=== PATIENT | female | born 1970 | race Caucasian/White ===

== ENCOUNTER 2016-08-14 07:46 | Day surgery (SDC) | payer OTHER ==
[2016-08-09 14:59] LABS: BASOPHILS 0.3 %; BASOPHILS ABSOLUTE 0.02 10/3/uL (0.0-0.16); EOSINOPHILS 2.4 %; EOSINOPHILS ABSOLUTE 0.15 10/3/uL (0.0-0.53); HEMATOCRIT 37.7 % (36.0-48.0); IMMATURE GRANULOCYTES 0.2 %; IMMATURE GRANULOCYTES ABSOLUTE 0.01 10/3/uL (0.0-0.11); LYMPHOCYTES 36.2 %; LYMPHOCYTES ABSOLUTE 2.23 10/3/uL (0.67-4.30); MEAN CORPUS HGB CONC 34.5 g/dL (32.0-36.0); MEAN CORPUSCULAR HEMOGLOB 33.2 pg (26.0-34.0); MEAN CORPUSCULAR VOLUME 96.2 fL (80-100); MEAN PLATELET VOLUME 9.3 fL (9.2-13.0); MONOCYTES 8.1 %; NEUTROPHILS 52.8 %; NEUTROPHILS ABSOLUTE 3.25 10/3/uL (2.02-8.40); RBC DISTRIBUTION WIDTH 12.7 % (12.0-16.0)
[2016-08-09 15:00] LABS: MANUAL DIFF NO %; PLATELET COUNT 309 10/3/uL (150-400); RED CELL COUNT 3.92 10/6/uL (4.0-5.6); WHITE BLOOD CELLS 6.2 10/3/uL (4.5-10.5)
[2016-08-09 15:13] LABS: BUN (BLOOD UREA NITROGEN) 9 MG/DL (6-23); CALCIUM, SERUM 9.3 MG/DL (8.5-10.4); CHLORIDE, SERUM 104 MMOL/L (96-112); CO2 (CARBON DIOXIDE) 32 MMOL/L (24-34); CREATININE 0.68 MG/DL (0.55-1.02); GFR AFRICAN AMERICAN 121 ML/MIN (>=60); GFR NON AFRICAN AMERICAN 104 ML/MIN (>=60); GLUCOSE, SERUM 89 MG/DL (60-99); SODIUM, SERUM 143 MMOL/L (135-148)
[2016-08-09 15:14] LABS: POTASSIUM, SERUM 3.8 MMOL/L (3.5-5.3)
--- NOTE | ~2016-08-14 | OP ---
Record Of Operation [facility] [address] [place]. [address] NAME: CAESAR CUBA : 68 STATUS : [facility]#: [id number] AGE: 46 ADM/REG DATE : 08/14/16 MR#: [id number] REPORT SERV DATE: 08/14/16 DICTATED BY: BARBARA GUERRA DATE: 08/14/16 REPORT STATUS : Draft TRANSCRIBED BY: MODL DATE: 08/14/16 DATE OF PROCEDURE: 08/14/2016 SERVICE: Otolaryngology. PREOPERATIVE DIAGNOSIS: Acquired nasal deformity. POSTOPERATIVE DIAGNOSIS: Acquired nasal deformity. PROCEDURE: 1. Repair of nasal vestibular stenosis. 2. Septoplasty. 3. [place] of septal cartilage for use as a graft in the nose. 4. Bilateral inferior turbinate submucosal reduction and outfracture. SURGEON: Barbara Guerra MD. ANESTHESIA: General endotracheal anesthesia. ESTIMATED BLOOD LOSS: 20 mL. COMPLICATIONS: None. SPECIMENS: Nasal bone and cartilage. FINDINGS: The patient has severe left-sided nasal spur and a bilateral internal valve insufficiency along with the turbinate hypertrophy. STATEMENT OF MEDICAL NECESSITY: A 46-year-old with chronic nasal airway obstruction, had history of multiple nasal traumas in the past. Did not have a significant history of allergy or other inflammatory nasal process. Her physical exam revealed the above mechanical obstructions and I recommended the above surgery for repair. STATEMENT OF OPERATION: The patient was brought to the operating room in supine position, transferred over to the operating room table. All pressure points were padded and general endotracheal anesthesia was established. The patient's nasal hairs were trimmed with straight iris scissors. A 4% cocaine-soaked pledgets were applied to the nose bilaterally. The skin and soft tissue envelope of the nose was infiltrated with 1% lidocaine with epinephrine as were the septal flaps bilaterally. The patient was prepped and draped in usual fashion. The cocaine pledgets were removed. A transcolumellar incision was marked using a surgical marking pen in inverted V fashion. Bilateral marginal incisions were made followed by a transcolumellar incision. The columellar skin was elevated in the submuscular plane and connected with the marginal incision. The skin and soft tissue envelope was elevated to fully expose the upper and lower lateral cartilages. Next, the anterior septal angle was developed with a 15 blade. Bilateral septal flaps were created in the subperichondrial and subperiosteal plane. The upper lateral cartilages were divided sharply Record Of Operation [place] [id number] [facility] [address] [place]. [address] NAME: CAESAR CUBA : 68 STATUS : [facility] PAT#: [id number] AGE: 46 ADM/REG DATE : 08/14/16 MR#: [id number] REPORT SERV DATE: 08/14/16 DICTATED BY: BARBARA GUERRA DATE: 08/14/16 REPORT STATUS : Draft TRANSCRIBED BY: SHERRY DATE: 08/14/16 from the dorsal septal cartilage with a 15 blade. The bony cartilaginous junction of the septum was then divided with a Hoke elevator. A Chiang scissor was used to make a superior cut just above the level of the deviated bony nasal septum and large septal spur. A Hoke elevator was used to dig the septal spur out of the maxillary crest over the spine of the maxilla. It was removed with a Reina forceps. Next, maintaining 1.5 cm caudal and dorsal strut, quadrangular cartilage was harvested, taken to the back table. A 15 blade was used to carve two administrator pesticide grafts and one columellar strut graft. The administrator pesticide grafts were placed between the upper lateral cartilage and dorsal septal cartilage and secured with 5-0 PDS sutures. Next, a soft tissue pocket was created between the medial crura of the lower lateral cartilage and a cartilaginous strut graft was placed with the hotel assistant general manager holding the tips in appropriate projection and rotation. A transcolumellar suture was performed incorporating both medial crura and the columellar strut graft. Once this was completed, the nasal skin was redraped, checked for symmetry, which was present. Both inferior turbinates were then injected with 1% lidocaine with epinephrine. They were reduced submucosally using a microdebrider and outfractured using a Boies elevator. The transcolumellar skin was then closed using interrupted 6-0 fast absorbing gut sutures followed by the internal nasal sutures, which were closed with 4-0 chromic gut sutures. Figueroa splints were applied to each side of the nose. They were coated in bacitracin and secured to the anterior septum with a 2-0 nylon stitch. The face and nasal skin were then cleansed with warm saline, dried, and Mastisol solution was applied over the dorsum. Modified Steri-Strips and Aquaplast splint were then applied to the dorsum of the nose. Finally, the patient's stomach and oropharynx were suctioned, clear of blood and fluid. She was turned over to Anesthesia, where she awoke, was extubated, and transferred to the PACU in stable condition. PS/MODMercedez Barbara Guerra MD / [id number] CC: MD Sheri Westfall M.D.
[~2016-08-14 07:46] MED LIST: CYMBALTA60 PO; LOP25 PO; MAXIMUM D3 PO; PCET PO; PROTONIX PO; XANAX1 MG PO
[2016-10-21] MEDS ORDERED: NORCO1 TAB PO (09:48)
== END 2016-08-14 14:22 | disposition home or self-care (01) ==
LOC: SDC 07:46
PROVIDERS: Otolaryngology
PROC: 09SM0ZZ Reposition Nasal Septum, Open Approach (ICD-10-PCS; 2016-08-14)
PROC: 09BL0ZZ Excision of Nasal Turbinate, Open Approach (ICD-10-PCS; 2016-08-14)
PROC: 09UK07Z Supplement Nasal Mucosa and Soft Tissue with Autologous Tissue Substitute, Open Approach (ICD-10-PCS; principal; 2016-08-14 09:45)
DX: M95.0 Acquired deformity of nose (principal); J34.2 Deviated nasal septum; J34.3 Hypertrophy of nasal turbinates; I10 Essential (primary) hypertension; F17.210 Nicotine dependence, cigarettes, uncomplicated; Z90.710 Acquired absence of both cervix and uterus; Z79.899 Other long term (current) drug therapy; Z98.890 Other specified postprocedural states
CPT/HCPCS: 80048; 85025; 88300; 93005; A9270-GY; J0690; J1170; J2250; J2405; J2710; J3010